=== PATIENT | female | born 1995 | race Hispanic/Latino ===

== ENCOUNTER → 2020-05-22 07:39 | Outpatient (CLI) | payer OTHER, SELFPAY ==
[2020-05-22] MEDS: COVID-19 VACC #1, MRNA(MOD) 100 MCG/0.5 ML VIAL IM (07:48)
== END ==
PROVIDERS: Visit Provider Internal Medicine
DX: Z23 Encounter for immunization (principal)
CPT/HCPCS: 0011A; 91301

== ENCOUNTER → 2020-06-19 07:44 | Outpatient (CLI) | payer OTHER, SELFPAY ==
[2020-06-19] MEDS: COVID-19 VACC #2, MRNA(MOD) 100 MCG/0.5 ML VIAL IM (07:52)
== END ==
PROVIDERS: Visit Provider Internal Medicine
DX: Z23 Encounter for immunization (principal)
CPT/HCPCS: 0012A; 91301